=== PATIENT | female | born 1950 | race Caucasian/White ===

== ENCOUNTER 2016-12-04 06:21 | Inpatient (IN) | payer BC ==
[~2016-12-04] VITALS: Ht 165.1 cm; Wt 67.6 kg
[~2016-12-04 06:21] MED LIST: ASPIR 8181 M1 PO; ATENOLOL50 MG PO; CALCIUM600 M1 PO; COLACE100 MG PO; ELIQUIS5 MG PO; FISH OIL OMEGA1 EAC2 PO; FLECAINIDE ACET50 MG PO; LIPITOR10 MG PO; MAGNESIUM250 MG PO; MSM1000 M1 PO; MULTIVITAMIN1 EAC2 PO; NEURONTIN300 MG PO; TYLENOL EXTRA500 MG PO; VITAMIN C1000 MG PO
[2016-12-04 06:58] VITALS: BP 146/75
[2016-12-04 13:23] VITALS: BP 143/72
[2016-12-04 19:54] VITALS: BP 123/70
[2016-12-04 23:52] VITALS: BP 115/57
[2016-12-05 04:00] VITALS: BP 123/63
[2016-12-05 08:15] VITALS: BP 108/55
[2016-12-05 11:54] VITALS: BP 114/61
[2016-12-05 16:16] VITALS: BP 123/59
[2016-12-05 20:12] VITALS: BP 120/60
[2016-12-06 00:30] VITALS: BP 123/59
[2016-12-06 03:58] VITALS: BP 128/61
[2016-12-06 07:41] VITALS: BP 130/63
[2016-12-06] MEDS ORDERED: DIAZEPAM10 MG PO (13:54)
[2016-12-06] MEDS ORDERED: HYDROCODON-ACE1 EAC7 PO (14:00)
[2016-12-06 15:34] VITALS: BP 113/59
== END 2016-12-06 18:55 | disposition home or self-care (01) | DRG 519 ==
LOC: 2SOUTH 06:21 → 3EAST 12:45 → 2SOUTH 14:52 → 3EAST 12-06 18:55
PROC: 00NW0ZZ Release Cervical Spinal Cord, Open Approach (ICD-10-PCS; principal; 2016-12-04)
DX: M47.12 Other spondylosis with myelopathy, cervical region (principal); G95.9 Disease of spinal cord, unspecified; M40.202 Unspecified kyphosis, cervical region; M54.2 Cervicalgia; R33.9 Retention of urine, unspecified; R56.9 Unspecified convulsions; F17.210 Nicotine dependence, cigarettes, uncomplicated; I34.1 Nonrheumatic mitral (valve) prolapse; I48.0 Paroxysmal atrial fibrillation; M19.90 Unspecified osteoarthritis, unspecified site; R26.81 Unsteadiness on feet; E78.00 Pure hypercholesterolemia, unspecified; Z98.1 Arthrodesis status; Z79.01 Long term (current) use of anticoagulants
CPT/HCPCS: 72020; 76000; J0131; J0171; J0330; J1100; J1170; J1580; J1885; J2250; J2405; J2710; J3370; J3480; S0020